=== PATIENT | female | born 1975 | race Caucasian/White ===

== ENCOUNTER 2018-12-23 16:04 | Observation (INO) | payer MEDICAID | END 2018-12-23 18:12 | disposition home or self-care (01) | LOC: 8 EST LDRP 16:04 | PROVIDERS: ADMIT Obstetrics & Gynecology; ATTEND Obstetrics & Gynecology | DX: Z34.93 Encounter for supervision of normal pregnancy, unspecified, third trimester (principal); Z3A.37 37 weeks gestation of pregnancy | CPT/HCPCS: 76815; 76818; G0378; 59025 ==

== ENCOUNTER 2019-01-02 06:33 | Inpatient (IN) | payer MEDICAID ==
[~2019-01-02] VITALS: Ht 167.6 cm; Wt 99.8 kg
[2019-01-02] MEDS: LACTATED RINGERS 1,000 ML IV SCH ×3 (02:14→10:44)
[2019-01-02] MEDS ORDERED: DEXT 5%/LR + PITOCIN 20UNITS/L 1,000 ML IV SCH ×2 (06:42→13:08)
[2019-01-02] MEDS ORDERED: METHYLERGONOVINE MALEATE 0.2 MG/ML IM PRN (06:45)
[2019-01-02] MEDS ORDERED: CARBOPROST TROMETHAMINE 250 MCG/ML AMPUL IM PRN (06:45)
[2019-01-02] MEDS ORDERED: CITRIC ACID/SODIUM CITRATE SOLN 30ML UDC PO SCH (07:45)
[2019-01-02 08:06] LABS: BASOPHILS % 0.3 % (0.0-2.0); EOSINOPHILS % 0.3 % (0.0-5.0); HEMOGLOBIN. 12.4 g/dL (12.0-16.0); LYMPHOCYTES % 24.8 % (20.0-50.0); MEAN CORPUSCULAR HEMOGLOBIN 29.5 pg (28.0-32.0); MEAN PLATELET VOLUME 8.2 fl (7.4-10.4); MONOCYTES % 4.4 % (2.0-8.0); NEUTROPHILS % 70.2 % (40.0-76.0); PLATELET 335 x1000/uL (130-400); RED BLOOD CELL COUNT 4.21 mill/uL (4.2-5.4); RED CELL DISTRIBUTION WIDTH 14.7 % (11.6-14.6)
[2019-01-02 08:16] LABS: INR 0.9; PARTIAL THROMBOPLASTIN TIME 28.7 sec (23.4-31.0); PROTHROMBIN TIME 9.2 sec (9.1-11.1)
[2019-01-02 08:22] LABS: CLARITY URINE CLOUDY (CLEAR); COLOR URINE YELLOW (YELLOW); SPECIFIC GRAVITY URINE 1.022 (1.005-1.030)
[2019-01-02 08:23] LABS: KETONES URINE NEGATIVE (NEGATIVE); NITRITE URINE NEGATIVE (NEGATIVE); OCCULT BLOOD URINE TRACE (NEGATIVE); PH URINE 5.5 (4.5-8.0); PROTEIN URINE NEGATIVE (NEGATIVE); UROBILINOGEN URINE 0.2 E.U./dL (0.2-1.0)
[2019-01-02 08:24] LABS: LEUKOCYTE ESTERASE URINE TRACE (NEGATIVE)
[2019-01-02 09:41] LABS: *AMPHETAMINES SCREEN URINE NEGATIVE (NEGATIVE); *BENZODIAZEPINES SCREEN URINE NEGATIVE (NEGATIVE)
[2019-01-02 09:43] LABS: *COCAINE SCREEN URINE NEGATIVE (NEGATIVE); CANNABINOID URINE SCREEN NEGATIVE (NEGATIVE); METHADONE URINE SCREEN NEGATIVE (NEGATIVE); OPIATES URINE SCREEN NEGATIVE (NEGATIVE); PHENCYCLIDINE URINE SCREEN NEGATIVE (NEGATIVE)
[2019-01-02 09:44] LABS: *BARBITURATES SCREEN URINE NEGATIVE (NEGATIVE)
[2019-01-02 13:11] LABS: HEPATITIS B SURFACE ANTIGEN NEGATIVE
[2019-01-02] MEDS ORDERED: IBUPROFEN 400MG TABLET PO PRN (13:15)
[2019-01-02] MEDS ORDERED: HYDROMORPHONE HCL/PF 2MG/ML CPJ IM PRN (13:15)
[2019-01-02] MEDS ORDERED: KETOROLAC 30MG/ML VIAL IV PRN ×2 (14:30→18:00)
[2019-01-02] MEDS ORDERED: DIPHENHYDRAMINE 50MG/ML VIAL IV PRN (14:30)
[2019-01-02] MEDS ORDERED: NALOXONE HCL 0.4 MG/ML 1ML VIAL IV PRN (14:30)
[2019-01-02] MEDS ORDERED: BUTORPHANOL TARTRATE 2 MG/ML VIAL IV PRN (14:30)
[2019-01-02 16:00] VITALS: BP 111/54
[2019-01-02 19:40] VITALS: BP 122/63
[2019-01-02 23:55] VITALS: BP 112/62
[2019-01-03] VITALS (7 sets, daily range): BP systolic 106–128; BP diastolic 54–68
[2019-01-03] MEDS: LACTATED RINGERS 1,000 ML IV SCH (04:00)
[2019-01-03 06:59] LABS: BASOPHILS % 0.3 % (0.0-2.0); EOSINOPHILS % 0.1 % (0.0-5.0); HEMATOCRIT. 30.3 % (36.0-48.0); HEMOGLOBIN. 10.2 g/dL (12.0-16.0); LYMPHOCYTES % 15.7 % (20.0-50.0); MEAN CORPUSCULAR HEMOGLOBIN 29.6 pg (28.0-32.0); MEAN CORPUSCULAR VOLUME 88.1 fL (81.0-99.0); MEAN PLATELET VOLUME 7.7 fl (7.4-10.4); MONOCYTES % 5.2 % (2.0-8.0); NEUTROPHILS % 78.7 % (40.0-76.0); PLATELET 279 x1000/uL (130-400); RED BLOOD CELL COUNT 3.44 mill/uL (4.2-5.4); RED CELL DISTRIBUTION WIDTH 14.7 % (11.6-14.6)
[2019-01-03] MEDS: BISACODYL 10MG SUPP PR PRN (09:44)
[2019-01-03] MEDS: ACETAMINOPHEN WITH CODEINE 300/30MG TABLET PO PRN ×2 (13:43→19:30)
[2019-01-03] MEDS ORDERED: DIPHENHYDRAMINE 25MG CAPSULE PO PRN (14:30)
[2019-01-03] MEDS: IBUPROFEN 800MG TABLET PO PRN (15:47)
[2019-01-03] MEDS: ONDANSETRON HCL 4MG/2ML INJ IM PRN ×2 (16:30→22:31)
[2019-01-04 05:00] VITALS: BP 121/71
[2019-01-04] MEDS: ONDANSETRON HCL 4MG/2ML INJ IM PRN (07:53)
[2019-01-04 08:00] VITALS: BP 112/64
[2019-01-04] MEDS ORDERED: METOCLOPRAMIDE HCL 10MG TABLET PO PRN ×2 (09:30→10:15)
[2019-01-04] MEDS: BISACODYL 10MG SUPP PR PRN (09:46)
[2019-01-04] MEDS: IBUPROFEN 800MG TABLET PO PRN (09:46)
[2019-01-04] MEDS: SIMETHICONE 80MG TABLET CHEW PO PRN ×3 (09:47→22:04)
[2019-01-04 16:00] VITALS: BP 135/68
[2019-01-04 22:00] VITALS: BP 115/62
[2019-01-05 04:00] VITALS: BP 131/66
[2019-01-05 08:00] VITALS: BP 125/67
[2019-01-05 12:00] VITALS: BP 118/64
== END 2019-01-05 12:53 | disposition home or self-care (01) | DRG 540 ==
LOC: 8 EST LDRP 06:33 → OBSVTOIN 06:33 → 8EST 15:55
PROVIDERS: ADMIT Obstetrics & Gynecology; ATTEND Obstetrics & Gynecology
PROC: 10D00Z1 Extraction of Products of Conception, Low, Open Approach (ICD-10-PCS; principal; 2019-01-02)
DX: O34.211 Maternal care for low transverse scar from previous cesarean delivery (principal); E66.01 Morbid (severe) obesity due to excess calories; O99.214 Obesity complicating childbirth; Z37.0 Single live birth; D64.9 Anemia, unspecified; Z3A.39 39 weeks gestation of pregnancy; O99.03 Anemia complicating the puerperium
CPT/HCPCS: 36415; 80305; 86592; 86703; 86762; 86850; 86900; 86920; 87340; 88307; 99281; J1200; J1885; J2405; J2590; J7120; J8597; Q0163; A4315

== ENCOUNTER 2023-06-18 10:45 | Emergency (ER) | payer MEDICAID ==
[~2023-06-18] VITALS: Ht 165.1 cm; Wt 83.9 kg
[2023-06-18 10:57] VITALS: BP 144/91; PULSE 68; RESP 18; O2SAT 99
[2023-06-18] MEDS ORDERED: LIDO700A15 TP (11:50)
[2023-06-18] MEDS ORDERED: NAPR-1176 MT (11:50)
[2023-06-18 12:00] VITALS: TEMP 98.9
[2023-06-18] MEDS ORDERED: ACETAMINOPHEN 325MG TABLET PO ONE (12:00)
== END 2023-06-18 13:25 | disposition home or self-care (01) ==
LOC: ER 10:45
DX: M25.562 Pain in left knee (principal); G89.29 Other chronic pain; Z98.890 Other specified postprocedural states
CPT/HCPCS: 73562; 81025; 99283